=== PATIENT | male | born 1950 | race Caucasian/White ===

== ENCOUNTER → 2025-02-11 12:04 | Outpatient (REF) | payer MEDICARE, SELFPAY | LOC: RAD 12:04 | PROVIDERS: ATTENDING PHYSICIAN Specialist; FAMILY PHYSICIAN Nurse Practitioner Family | DX: C61 Malignant neoplasm of prostate (principal); D41.02 Neoplasm of uncertain behavior of left kidney | CPT/HCPCS: 71250; 74178; Q9967 ==

== ENCOUNTER 2025-03-22 06:40 | Inpatient (IN) | payer MEDICARE, SELFPAY ==
[2025-03-17 13:40] VITALS: BMI 36.2
[2025-03-17 15:30] LABS: Blood Urea Nitrogen 17 mg/dl (9-20); Calcium 9.7 mg/dl (8.4-10.2); Carbon Dioxide 27 mmol/L (22-30); Chloride 106 mmol/L (98-107); Estimated Creatinine Clearance 81 ml/min; Glucose 86 mg/dl (70-99); Potassium 4.8 mmol/L (3.5-5.1); Sodium 140 mmol/L (135-145); eGFR > 60.00
[2025-03-17 15:34] LABS: Hematocrit 47.4 % (39.0-52.0); Hemoglobin 16.1 g/dL (13.0-18.0); Mean Corp Hgb Conc. 34.0 g/dL (33.0-37.0); Mean Corpuscular Volume 90.1 fL (80.0-94.0); Platelet Count 137 10^3/uL (130-400); Red Cell Dist. Width 14.1 % (11.5-14.5)
[2025-03-22] VITALS (23 sets, daily range): BP systolic 106–152; BP diastolic 68–91; BMI 36.2
[2025-03-22] MEDS: NORMOSOL-R/PLASMALYTE-A 1000 IV (06:35)
--- NOTE | 2025-03-22 11:20 | W.IMMPOSTOP ---
Surgical Immed Post Op Note
-
Primary Surgeon: Christopher
Assisting Surgeon: Husam
Pre-op Diagnosis: L renal mass
Post-op Diagnosis: same
Procedure Performed: Lap L nephrectomy
Anesthesia Type: gen
Specimen / Cultures: L kidney
Estimated Blood Loss: 150
Complications: none
Operative Findings: -
[2025-03-22] MEDS: DILAUDID 0.25 MG IV ×2 (11:33→11:48)
[2025-03-22 11:54] LABS: Hematocrit 44.8 % (39.0-52.0); Hemoglobin 15.2 g/dL (13.0-18.0)
[2025-03-22] MEDS: DILAUDID 0.5 MG IV (13:26)
[2025-03-22 13:31] LABS: Blood Urea Nitrogen 25 mg/dl (9-20); Calcium 8.6 mg/dl (8.4-10.2); Carbon Dioxide 25 mmol/L (22-30); Chloride 105 mmol/L (98-107); Estimated Creatinine Clearance 58 ml/min; Glucose 144 mg/dl (70-99); Potassium 4.4 mmol/L (3.5-5.1); Sodium 138 mmol/L (135-145); eGFR 52.41
[2025-03-22] MEDS: LR 1000 IV (14:45)
--- NOTE | 2025-03-22 14:45 | PTCARENOTE ---
Telephone report received from COKE DRAWER Rach; patient arrived in bed @14:43, VSS, at bedside; admission completed at bedside.
[2025-03-22] MEDS: SYMBICORT 160/4.5 MCG INHALER 2 PUFF INH (19:23)
[2025-03-22] MEDS: DILAUDID 1 MG IV (19:46)
[2025-03-22] MEDS: SENOKOT 17.2 MG PO (21:14)
[2025-03-22] MEDS: LOPRESSOR PO ×2 (21:14→21:20)
[2025-03-22] MEDS: ASPIR LOW (ENTERIC COATED) 81 MG PO (21:14)
[2025-03-23] MEDS: PERCOCET 5/325 1 TABLET PO ×2 (02:42→11:08)
[2025-03-23 03:10] VITALS: BP 124/62
[2025-03-23 07:00] VITALS: BP 155/86
[2025-03-23 07:12] LABS: Hematocrit 41.1 % (39.0-52.0); Hemoglobin 14.2 g/dL (13.0-18.0); Mean Corp Hgb Conc. 34.5 g/dL (33.0-37.0); Mean Corpuscular Volume 88.6 fL (80.0-94.0); Platelet Count 141 10^3/uL (130-400); Red Cell Dist. Width 13.7 % (11.5-14.5)
[2025-03-23] MEDS: SPIRIVA RESPIMAT 2.5 MCG 2 PUFF INH (07:20)
[2025-03-23] MEDS: SYMBICORT 160/4.5 MCG INHALER 2 PUFF INH (07:20)
[2025-03-23 07:30] LABS: Blood Urea Nitrogen 29 mg/dl (9-20); Calcium 8.6 mg/dl (8.4-10.2); Carbon Dioxide 25 mmol/L (22-30); Chloride 103 mmol/L (98-107); Estimated Creatinine Clearance 48 ml/min; Glucose 126 mg/dl (70-99); Potassium 4.7 mmol/L (3.5-5.1); Sodium 134 mmol/L (135-145); eGFR 41.52
--- NOTE | 2025-03-23 08:47 | W.PN.URO.CBU ---
Today's Communication / Plan
-
- Surgical EDDIE post nephrectomy - trend creat outpatient
- Walls out for trial of void
- Ambulate
- OOB
- IS
- Reg diet
- Likely discharge today when ambulating
Assessment / Plan
-
74M with left renal mass
s/p lap L nephrectomy 03/22
- Surgical EDDIE post nephrectomy - trend creat outpatient
- Walls out for trial of void
- Ambulate
- OOB
- IS
- Reg diet
- Likely discharge today when ambulating
Diagnosis
-
Date of Service: March 23, 2025
-
Patient Diagnosis: L renal mass
Post Op s/p lap L nephrectomy
Subjective
-
Pain controlled overnight
Hasn;t ambulated yet
tolerating diet
No void after walls removed today
Objective
-
Vital Signs
Temp Pulse Resp BP Pulse Ox
98.1 F 72 14 155/86 97
03/23/25 07:00 03/23/25 07:25 03/23/25 07:25 03/23/25 07:00 03/23/25 07:00
Intake and Output
03/22/25 03/23/25 03/24/25
06:59 06:59 06:59
Intake Total 650 / 650
Output Total 500 / 500
Balance 150 / 150
Intake:
IV fluids (Total) 650 / 650
Output:
Urine, Walls 500 / 500
Laboratory Results
03/23/25 06:31
03/23/25 06:31
Physical Exam
-
General - well developed, well nourished, no acute distress
Chest - clear bilaterally
Abdomen - soft, non-tender, positive bowel sounds, no CVAT, no incisional pain or distention
Skin - warm & dry with no rash
Neuro - AOx3, no motor deficits
Extremities - no clubbing, no cyanosis, no edema
Incision - clean, dry
Dressing - clean, dry, intact
[2025-03-23] MEDS: CRESTOR 20 MG PO (09:00)
[2025-03-23] MEDS: MIRALAX 17 GRAMS PO (09:00)
[2025-03-23] MEDS: LOPRESSOR 25 MG PO (09:00)
[2025-03-23] MEDS: SENOKOT 17.2 MG PO (09:00)
--- NOTE | 2025-03-23 09:30 | CM ---
Patient seen at bedside in [address] [place] [address]. Patient lives with in a 2 story home. Patient states he remembered this CM from prior admission several years ago but CM had not seen patient. Patient stated he has no needs and has a nebulizer and CPAP at
home. Patient uses the [facility] at [facility] and the [facility]. Patient indicated that he would not need VN at discharge. Pending therapy assessment per physician and CM will follow to clarify if patient
will need VN or outpatient therapy. CM will continue to follow for discharge planning needs.
Plan; home with no needs anticipated at this time.
[2025-03-23 11:27] VITALS: BP 127/71
[2025-03-23 14:59] VITALS: BP 152/81
== END 2025-03-23 15:35 | disposition home or self-care (01) | DRG 661 ==
LOC: 2 SOUTH 06:40
PROVIDERS: ADMITTING PHYSICIAN Urology; FAMILY PHYSICIAN Nurse Practitioner Family
PROC: 0TT14ZG Resection of Left Kidney, Percutaneous Endoscopic Approach, Hand-Assisted (ICD-10-PCS; 2025-03-22)
DX: N28.89 Other specified disorders of kidney and ureter (principal)
CPT/HCPCS: 80048; 85014; 85018; 85027; 86850; 86900; 86901; 86920; 88307; 93005; 94640